=== PATIENT | male | born 1970 | race Caucasian/White ===

== ENCOUNTER 2017-07-12 13:24 | Inpatient (IN) | payer MEDICARE, OTHER ==
[~2017-07-12] VITALS: Ht 170.2 cm; Wt 80.4 kg
[2017-07-12] MEDS ORDERED: IOHEXOL 350 MG/ML 10 ML VIAL (for RAD DIAG) IVCONTRAST ONE (13:25)
[2017-07-12 13:37] VITALS: BP 120/69; PULSE 113; RESP 18; TEMP 101.2; O2SAT 97
[2017-07-12] MEDS ORDERED: SODIUM CHLORIDE 0.9% FLUSH 10 ML FLUSH IV FLUSH PRN ×2 (13:45→18:30)
[2017-07-12] MEDS ORDERED: ACETAMINOPHEN 650 MG/20.3 ML UDC PO ONE (13:45)
[2017-07-12] MEDS ORDERED: ATOR10TA15 PO (14:02)
[2017-07-12] MEDS ORDERED: MULT1TAB46 PO (14:02)
[2017-07-12] MEDS ORDERED: POTA-163 PO (14:02)
[2017-07-12] MEDS ORDERED: LEVO100T5 PO (14:02)
[2017-07-12] MEDS ORDERED: OMEP20TA93 PO (14:02)
[2017-07-12] MEDS ORDERED: DOCU100C15 PO (14:02)
[2017-07-12] MEDS ORDERED: SIME1CAP17 PO (14:02)
[2017-07-12 14:20] LABS: AUTOMATED NEUTROPHIL # 8.5 TH/MM3 (1.8-7.7); BASOPHIL % 0.3 % (0.0-2.0); EOSINOPHIL % 0.2 % (0.0-4.0); HEMATOCRIT 40.2 % (39.0-51.0); HEMOGLOBIN 13.6 GM/DL (13.0-17.0); LYMPH % 7.3 % (9.0-44.0); LYMPHOCYTE # 0.7 TH/MM3 (1.0-4.8); MEAN CELL VOLUME 89.6 FL (80.0-100.0); MEAN CORPUSCULAR HEMOGLOBIN 30.4 PG (27.0-34.0); MEAN CORPUSCULAR HGB CONC 33.9 % (32.0-36.0); MEAN PLATELET VOLUME 7.4 FL (7.0-11.0); MONO % 6.2 % (0.0-8.0); MONOCYTE # 0.6 TH/MM3 (0-0.9); PLATELET COUNT 257 TH/MM3 (150-450); RED BLOOD COUNT 4.49 MIL/MM3 (4.50-5.90); RED CELL DISTRIBUTION WIDTH 13.8 % (11.6-17.2); WHITE BLOOD COUNT 9.9 TH/MM3 (4.0-11.0)
--- NOTE | 2017-07-12 14:31 | RADRPT ---
EXAM DATE/TIME: 07/12/2017 13:57 [facility] COMPARISON: No previous studies available for comparison. INDICATIONS : Shortness of breath. MEDICAL HISTORY : None. SURGICAL HISTORY : None. ENCOUNTER: Initial ACUITY: 1 day PAIN SCORE: Non-responsive. LOCATION: Bilateral chest FINDINGS: Minimal basilar parenchymal opacities are present. This may largely reflect poor inspiratory effort. There is distended colon seen over the upper abdomen. Cardiac contours are grossly satisfactory. CONCLUSION: Poor inspiration with mild basilar parenchymal opacity Venkata Resendez MD on July 12, 2017 at 14:29 Board Certified Radiologist. This report was verified electronically.
[2017-07-12 14:45] LABS: ALBUMIN 3.6 GM/DL (3.4-5.0); ALT (GPT) 61 U/L (12-78); AST (GOT) 36 U/L (15-37); BICARBONATE 29.7 MEQ/L (21.0-32.0); BLOOD UREA NITROGEN 17 MG/DL (7-18); CALCIUM 8.6 MG/DL (8.5-10.1); CHLORIDE 103 MEQ/L (98-107); CREATININE 1.34 MG/DL (0.60-1.30); GLOMERULAR FILTRATION RATE 57 ML/MIN (>89); GLUCOSE,RANDOM 128 MG/DL (74-106); SODIUM (NA) 139 MEQ/L (136-145)
[2017-07-12 14:47] LABS: ALKALINE PHOSPHATASE 83 U/L (45-117); TOTAL BILIRUBIN ADULT 0.5 MG/DL (0.2-1.0); TOTAL PROTEIN 7.6 GM/DL (6.4-8.2)
[2017-07-12 15:20] VITALS: RESP 18; O2SAT 98
[2017-07-12 15:45] VITALS: BP 154/87; PULSE 97; RESP 16; O2SAT 95
[2017-07-12 15:53] VITALS: BP 115/65; PULSE 115; RESP 16; TEMP 98.9; O2SAT 98
[2017-07-12] MEDS ORDERED: PIPERACIL-TAZO 3.375 GM PREMIX 50 ML IV ONE (16:15)
--- NOTE | 2017-07-12 16:24 | RADRPT ---
EXAM DATE/TIME: 07/12/2017 15:39 [facility] COMPARISON: No previous studies available for comparison. INDICATIONS : Abdomen pain IV CONTRAST: 97 cc Omnipaque 350 (iohexol) IV ORAL CONTRAST: No oral contrast ingested. RADIATION DOSE: 7.97 CTDIvol (mGy) MEDICAL HISTORY : None SURGICAL HISTORY : None. ENCOUNTER: Initial ACUITY: 1 day PAIN SCALE: 5/10 LOCATION: Abdomen TECHNIQUE: Volumetric scanning of the abdomen and pelvis was performed. Using automated exposure control and ad justment of the mA and/or kV according to patient size, radiation dose was kept as low as reasonably achievable to obtain optimal diagnostic quality images. DICOM format image data is available electro nically for review and comparison. FINDINGS: LOWER LUNGS: The visualized lower lungs are clear. LIVER: The liver is diffusely hypodense. There are no suspicious lesions or evidence of biliary duct dilatat ion. SPLEEN: Normal size without lesion. PANCREAS: Within normal limits. KIDNEYS: Normal in size and shape. There is no mass, stone or hydronephrosis. ADRENAL GLANDS: Within normal limits. VASCULAR: There is no aortic aneurysm. BOWEL/MESENTERY: The stomach, small bowel, and colon demonstrate no acute abnormality. There is no free intraperitone al air or fluid. ABDOMINAL WALL: Paracentral thinning of the anterior abdominal wall soft tissues with projection of the colon in betw een the rectus muscles suggesting a broad-based ventral hernia. RETROPERITONEUM: There is no lymphadenopathy. BLADDER: No wall thickening or mass. REPRODUCTIVE: Within normal limits. INGUINAL: Fluid accumulation is identified in the right inguinal hernia. Small amount trace fluid is present in the pelvis. MUSCULOSKELETAL: Within normal limits for patient age. CONCLUSION: 1. Hepatic steatosis 2. Broad-based ventral hernia 3. Trace fluid in pelvis and small amount of fluid trapped within the right inguinal canal. 4. Otherwise no evidence of acute process. Eric Saeed MD on July 12, 2017 at 16:17 Board Certified Radiologist. This report was verified electronically.
--- NOTE | 2017-07-12 17:04 | PD ---
HPI Chief Complaint: Medical Clearance Time Seen by Provider: 13:28 Travel History International Travel<30 days: No Contact w/Intl Traveler<30days: No Traveled to known affect area: No History of Present Illness HPI This is a 47-year-old male who has a history of developmental delay who is nonverbal who presents to the emergency department with the behavioral disturbance. He evidently punched a window and has been pointing to his left abdomen saying that it is hurting him. He was at [facility] earlier today and he vomited up his breakfast. The lawn and garden technician who knows him very well says he has not been himself at all and she is concerned that something is wrong. He has a history of a bowel obstruction in the past due to pica. History is obtained from the lawn and garden technician as the patient is nonverbal. PFSH Past Medical History High Cholesterol: Yes GERD: Yes Thyroid Disease: Yes Past Surgical History Abdominal Surgery: Yes Social History Alcohol Use: No Tobacco Use: No Substance Use: No Allergies-Medications (Allergen,Severity, Reaction): Coded Allergies: No Known Allergies (Unverified , 07/12/17) Reported Meds & Prescriptions Reported Meds & Active Scripts Active Reported Simethicone 125 Mg Cap 80 Mg PO QID Omeprazole 20 Mg Tab 20 Mg PO DAILY Multi-Vitamin Daily (Multivitamin) 1 Each Tablet PO DAILY Levothyroxine (Levothyroxine Sodium) 100 Mcg Tab 100 Mcg PO DAILY Potassium Chloride ER (Potassium Chloride) 20 Meq Tab 20 Meq PO BID Docusate Sodium 100 Mg Cap 100 Mg PO BID Atorvastatin (Atorvastatin Calcium) 10 Mg Tab 10 Mg PO HS Review of Systems ROS Limitations: Speech Impaired Physical Exam Narrative GENERAL:Well appearing, no acute distress SKIN: Focused skin assessment warm and dry. HEAD: Atraumatic. Normocephalic. EYES: Pupils equal and round. No injection or drainage. ENT: Moist mucous membranes. Unable to get a good posterior pharyngeal exam due to patient cooperation. NECK: Trachea midline. CARDIOVASCULAR: Regular rate and rhythm. No murmur appreciated. RESPIRATORY: Clear to auscultation. Breath sounds equal bilaterally. GASTROINTESTINAL: Abdomen soft, non-tender, nondistended. MUSCULOSKELETAL: No obvious deformities. NEUROLOGICAL: Nonverbal. No obvious cranial nerve deficits. Moving all extremities. Data Data Last Documented VS Vital Signs Date Time Temp Pulse Resp B/P (MAP) Pulse Ox O2 Delivery O2 Flow Rate FiO2 07/12/17 15:53 98.9 115 16 115/65 (82) 98 Room Air Orders Orders Complete Blood Count With Diff (07/12/17 13:35) Comprehensive Metabolic Panel (07/12/17 13:35) Lipase (07/12/17 13:35) Urinalysis - C+S If Indicated (07/12/17 13:35) Iv Access Insert/Monitor (07/12/17 13:35) Ecg Monitoring (07/12/17 13:35) Oximetry (07/12/17 13:35) Sodium Chloride 0.9% Flush (Ns Flush) (07/12/17 13:45) Chest, Single Ap (07/12/17 13:35) Ct Abd/Pel W Iv Contrast(Rout) (07/12/17 ) Influenzae A/B Antigen (07/12/17 13:35) Group A Rapid Strep Screen (07/12/17 13:35) Acetaminophen 650 Mg/20 Ml Liq (Tylenol (07/12/17 13:45) Strep Culture (Group A) (07/12/17 13:50) Iohexol 350 Inj (Omnipaque 350 Inj) (07/12/17 13:25) Lactic Acid (07/12/17 16:01) Blood Culture (07/12/17 16:01) Piperacil-Tazo 3.375 Gm Premix (Zosyn 3. (07/12/17 16:15) Labs Laboratory Tests Test 07/12/17 13:50 07/12/17 14:05 White Blood Count 9.9 TH/MM3 Red Blood Count 4.49 MIL/MM3 Hemoglobin 13.6 GM/DL Hematocrit 40.2 % Mean Corpuscular Volume 89.6 FL Mean Corpuscular Hemoglobin 30.4 PG Mean Corpuscular Hemoglobin Concent 33.9 % Red Cell Distribution Width 13.8 % Platelet Count 257 TH/MM3 Mean Platelet Volume 7.4 FL Neutrophils (%) (Auto) 86.0 % Lymphocytes (%) (Auto) 7.3 % Monocytes (%) (Auto) 6.2 % Eosinophils (%) (Auto) 0.2 % Basophils (%) (Auto) 0.3 % Neutrophils # (Auto) 8.5 TH/MM3 Lymphocytes # (Auto) 0.7 TH/MM3 Monocytes # (Auto) 0.6 TH/MM3 Eosinophils # (Auto) 0.0 TH/MM3 Basophils # (Auto) 0.0 TH/MM3 CBC Comment DIFF FINAL Differential Comment Blood Urea Nitrogen 17 MG/DL Creatinine 1.34 MG/DL Random Glucose 128 MG/DL Total Protein 7.6 GM/DL Albumin 3.6 GM/DL Calcium Level 8.6 MG/DL Alkaline Phosphatase 83 U/L Aspartate Amino Transf (AST/SGOT) 36 U/L Alanine Aminotransferase (ALT/SGPT) 61 U/L Total Bilirubin 0.5 MG/DL Sodium Level 139 MEQ/L Potassium Level 4.1 MEQ/L Chloride Level 103 MEQ/L Carbon Dioxide Level 29.7 MEQ/L Anion Gap 6 MEQ/L Estimat Glomerular Filtration Rate 57 ML/MIN Lipase 157 U/L Lactic Acid Level 1.5 mmol/L [facility] Medical Decision Making Medical Screen Exam Complete: Yes Emergency Medical Condition: Yes Interpretation(s) Afebrile, tachycardic, hypertensive No leukocytosis 86% neutrophils Renal insufficiency Lactic acid is 1.5 Chest x-ray: Mild basilar parenchymal opacities CT abdomen and pelvis: No acute process Differential Diagnosis Bowel obstruction, appendicitis, urinary tract infection, pneumonia Narrative Course This is a 47-year-old male who presents to the emergency department with developmental delay. He is nonverbal. He evidently had a behavioral outburst and has been gripping his left stomach. He had an episode of vomiting earlier. Patient was placed on a monitor and IV was established. Labs demonstrate 86% neutrophils but are otherwise reassuring. Chest x-ray demonstrates some basilar opacities which may be due to hypoinflation but also may reflect pneumonia. CT abdomen pelvis is unrevealing. Influenza and strep are negative. Given the patient's developmental delay and inability to communicate I think it is reasonable to admit him to the hospital on IV antibiotics to cover empirically for pneumonia. Urinalysis will be obtained while he is in the hospital. Diagnosis Primary Impression: Fever Qualified Codes: R50.9 - Fever, unspecified Admitting Information Admitting Physician Requests: Comfort Posada MD July 12, 2017 17:04
[2017-07-12] MEDS ORDERED: SODIUM CHLOR 0.9% 1000 ML INJ 1,000 ML IV SCH ×2 (17:15)
--- NOTE | 2017-07-12 18:16 | HHI.HP ---
[facility] Service Family Medicine Primary Care Physician Unknown Admission Diagnosis fever Diagnoses: International Travel<30 Days: No Contact w/Intl Traveler<30days: No Known Affected Area: No History of Present Illness Patient is a 47-year-old nonverbal male with past history of intellectual disability, pica, hypothyroid, GERD who presents today for stomach pain. The patient's business assistant accompanied him to the exam. 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 Patient was [place] acted by the area supervisor to [employer]. She reports that [employer] Mccullough had difficulty caring for the patient due to his nonverbal status, and also reports that he is holding his stomach. She states that while there he "ate a meal fast and threw up." She also reports that he had one bowel movement this morning, notes it was normal to her knowledge. When asking the patient he nodded in agreement that it was normal. With help of interpretation through his business assistant it was gathered that he still had upper abdominal pain, but denied any other pain. Denied nausea, burning on urination, abnormal urination. Affirms hunger, normal bowel movement. During the exam the patient continued to burp excessively, grab his throat and cough. His business assistant notes that this is not normal behavior for him. She also notes that he has pica, eats trees, leaves, gloves, underwear elastic, cups. No other complaints today and business assistant notes no further abnormal behaviors. She believes that by the time of the interview the patient had returned to baseline. Review of Systems Constitutional: DENIES: Fever, Chills Eyes: DENIES: Eye inflammation, Eye pain Ears, nose, mouth, throat: DENIES: Throat pain, Ear Pain Respiratory: COMPLAINS OF: Cough (normal for him to have persistent cough), DENIES: Wheezing, Sputum production Cardiovascular: DENIES: Chest pain, Syncope Gastrointestinal: COMPLAINS OF: Abdominal pain, Vomiting (X1, attributed to eating fast), DENIES: Diarrhea Genitourinary: DENIES: Urinary frequency, Dysuria Integumentary: COMPLAINS OF: Abnormal pigmentation (noted around patient's abdominal scar, small scab), DENIES: Rash Hematologic/lymphatic: DENIES: Bruising, Lymphadenopathy Immunologic/allergic: DENIES: Eczema Neurologic: DENIES: Abnormal gait, Headache Psychiatric: COMPLAINS OF: Mood changes, DENIES: Confusion (Baseline confusion) Past Family Social History Past Medical History HLD Constipation Hypothyroid GERD Chronic abdominal gas 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 Pica Past Surgical History Surgery for SBO Allergies: Coded Allergies: No Known Allergies (Unverified , 07/12/17) Family History Unknown, unable to obtain Social History Nonverbal, lives at [facility] EtOH: none Tobacco: None Drugs: none Physical Exam Vital Signs Vital Signs Date Time Temp Pulse Resp B/P (MAP) Pulse Ox O2 Delivery O2 Flow Rate FiO2 07/12/17 15:53 98.9 115 16 115/65 (82) 98 Room Air 07/12/17 15:45 97 16 154/87 (109) 95 Room Air 07/12/17 15:45 154/87 (109) 07/12/17 15:20 18 98 Room Air 07/12/17 13:37 101.2 113 18 120/69 (86) 97 Room Air Physical Exam GENERAL: This is a well-nourished patient, sitting crosslegged in bed rocking back and forth, occasionally grasping and throat and coughing, occasional inappropriate laughter, occasionally grasps upper abdomen. SKIN: Cool and dry. Small area of induration and scabbing in the mid epigastric area at the superior portion of an old abdominal surgical scar. No surrounding erythema or active drainage. HEAD: Atraumatic. Not normocephalic. No temporal or scalp tenderness. EYES: Difficult to obtain due to cooperation, pupils appear equal round and reactive. Extraocular motions intact. No scleral icterus. No injection or drainage. ENT: Nose without bleeding, purulent drainage or septal hematoma. Throat without erythema, tonsillar hypertrophy or exudate. Uvula midline. Airway patent. Poor dentition. NECK: Trachea midline. No JVD or lymphadenopathy. Supple, nontender, no meningeal signs. CARDIOVASCULAR: Regular rate and rhythm without murmurs, gallops, or rubs. RESPIRATORY: Clear to auscultation. Breath sounds equal bilaterally. No wheezes , rales, or rhonchi. GASTROINTESTINAL: Large midline old abdominal surgical scar with skin findings above. Abdomen soft, non-tender, nondistended. No hepato-splenomegaly, or palpable masses. No guarding. Unable to elicit Dillon's, McBurney's, Rovsing's. MUSCULOSKELETAL: Extremities without clubbing, cyanosis, or edema. No joint tenderness, effusion, or edema noted. No calf tenderness. Negative Homans sign bilaterally. NEUROLOGICAL: Awake and alert. Motor and sensory grossly within normal limits. Five out of 5 muscle strength in all muscle groups. Nonverbal. Psychological: Patient is nonverbal, can occasionally poorly or occasional easily follow certain commands. inappropriate affect, inappropriate laughter. Poor eye contact. Rocking back and forth. (All noted to be normal by his business assistant of 10 years) Laboratory Laboratory Tests Test 07/12/17 13:50 07/12/17 14:05 White Blood Count 9.9 Red Blood Count 4.49 Hemoglobin 13.6 Hematocrit 40.2 Mean Corpuscular Volume 89.6 Mean Corpuscular Hemoglobin 30.4 Mean Corpuscular Hemoglobin Concent 33.9 Red Cell Distribution Width 13.8 Platelet Count 257 Mean Platelet Volume 7.4 Neutrophils (%) (Auto) 86.0 Lymphocytes (%) (Auto) 7.3 Monocytes (%) (Auto) 6.2 Eosinophils (%) (Auto) 0.2 Basophils (%) (Auto) 0.3 Neutrophils # (Auto) 8.5 Lymphocytes # (Auto) 0.7 Monocytes # (Auto) 0.6 Eosinophils # (Auto) 0.0 Basophils # (Auto) 0.0 CBC Comment DIFF FINAL Differential Comment Blood Urea Nitrogen 17 Creatinine 1.34 Random Glucose 128 Total Protein 7.6 Albumin 3.6 Calcium Level 8.6 Alkaline Phosphatase 83 Aspartate Amino Transf (AST/SGOT) 36 Alanine Aminotransferase (ALT/SGPT) 61 Total Bilirubin 0.5 Sodium Level 139 Potassium Level 4.1 Chloride Level 103 Carbon Dioxide Level 29.7 Anion Gap 6 Estimat Glomerular Filtration Rate 57 Lipase 157 Lactic Acid Level 1.5 Date/Time Source Procedure Growth Status 07/12/17 14:10 Blood Peripheral Aerobic Blood Culture Pending Received 07/12/17 14:10 Blood Peripheral Anaerobic Blood Culture Pending Received 07/12/17 13:50 Throat Group A Streptococcus Screen Pending Received Result Diagram: 07/12/17 1350 07/12/17 1350 Imaging Last Impressions Chest X-Ray 07/12/17 1335 Signed Impressions: Service Date/Time: Wednesday, July 12, 2017 13:57 - CONCLUSION: Poor inspiration with mild basilar parenchymal opacity Venkata Resendez MD Abdomen/Pelvis CT 07/12/17 0000 Signed Impressions: Service Date/Time: Wednesday, July 12, 2017 15:39 - CONCLUSION: 1. Hepatic steatosis 2. Broad-based ventral hernia 3. Trace fluid in pelvis and small amount of fluid trapped within the right inguinal canal. 4. Otherwise no evidence of acute process. Eric Saeed MD [facility] V[facility] Risk Assessment [facility] VTE Risk Assessment: No/Low Risk (score <= 1) Assessment and Plan Assessment and Plan Patient is a 47-year-old nonverbal male with past history of intellectual disability, pica, hypothyroid, GERD who presented for stomach pain and behavioral change. Patient's business assistant of 10 years noted that at admission his behavior had returned to baseline. However he did continue to grasp his stomach and noted he had abdominal pain. On admission febrile, tachycardic, CXR concerning for possible pneumonia. Problem List: (1) Pneumonia ICD Codes: J18.9 - Pneumonia, unspecified organism Plan: Patient febrile, tachycardic with CXR showing mild by basilar parenchymal opacity. Chronic cough. Concern for community-acquired pneumonia. -Ceftriaxone 1000 mg every 24 hours, azithromycin 500 mg every 24 hours -Monitor for symptomatic change (2) Sepsis ICD Codes: A41.9 - Sepsis, unspecified organism Plan: On admission febrile, tachycardic, CXR suggestive of possible pneumonia. Otherwise well-appearing. -Lactic acid 1.5, within normal limits -Follow-up blood cultures, UA -Antibiotics as above (3) Abdominal pain ICD Codes: R10.9 - Unspecified abdominal pain Plan: Patient nonverbally complaining of abdominal pain. CT abdomen with hepatic steatosis, a broad-based ventral hernia, trace fluid in pelvis and small amount of fluid trapped in the right inguinal canal, no evidence of acute process. On physical exam small area of induration and superior aspect of epigastrium, concerning for possible localized infection. -Antibiotics as above should likely treat possible cellulitis (4) HLD (hyperlipidemia) ICD Codes: E78.5 - Hyperlipidemia, unspecified Plan: History of hyperlipidemia -Continue atorvastatin 10 mg p.o. (5) Hypothyroid ICD Codes: E03.9 - Hypothyroidism, unspecified Plan: History of hypothyroidism. -Follow-up TSH -continue home levothyroxine 100 mcg p.o. daily (6) GERD (gastroesophageal reflux disease) ICD Codes: K21.9 - Gastro-esophageal reflux disease without esophagitis Plan: History of GERD -Continue omeprazole 20 mg daily (7) Pica ICD Codes: F50.89 - Other specified eating disorder Plan: History of pica, reported to eat trees, leaves, gloves, underwear elastic , cups. -One-on-one sitter (8) Flatulence ICD Codes: R14.3 - Flatulence Plan: History of chronic flatulence -Continue home simethicone 125 mg p.o. 4 times daily (9) FEN Plan: Fluids: -Currently tolerating p.o. Electrolytes: -Monitor and replete as needed Nutrition: -Regular diet PPx: Patient's business assistant notes he will likely do poorly with subq shots, will reapproach DVT prophylaxis if patient is anticipated to be in the hospital for extended time Oumar Orr MD R1 July 12, 2017 18:16
[2017-07-12] MEDS ORDERED: LACTULOSE SYRUP 20 GM/30 ML CUP PO PRN (18:30)
[2017-07-12] MEDS ORDERED: NALOXONE HCL 0.4 MG/ML AMP IV PUSH PRN (18:30)
[2017-07-12] MEDS ORDERED: SENNOSIDES 8.6 MG TAB PO PRN (18:30)
[2017-07-12] MEDS ORDERED: ACETAMINOPHEN 325 MG TAB PO PRN (18:30)
[2017-07-12] MEDS ORDERED: BISACODYL 10 MG SUPP RECTAL PRN (18:30)
[2017-07-12] MEDS ORDERED: MAGNESIUM HYDROXIDE SUSP 30 ML CUP PO PRN (18:30)
[2017-07-12 19:41] VITALS: BP 117/66; PULSE 102; RESP 17; TEMP 99.8; O2SAT 97
[2017-07-12] MEDS ORDERED: AZITHROMYCIN INJ 500 MG in SODIUM CHLOR 0.9% 250 ML INJ 250 ML IV SCH (20:00)
[2017-07-12] MEDS ORDERED: cefTRIAXone INJ 1,000 MG in SODIUM CHLORIDE 0.9% INJ 100 ML IV SCH (21:00)
[2017-07-12] MEDS: DOCUSATE SODIUM 100 MG CAP PO SCH (21:19)
[2017-07-12] MEDS: DOCUSATE SODIUM 50 MG/SENNA 8.6 MG TAB PO SCH (21:19)
[2017-07-12] MEDS: ATORVASTATIN 10 MG TAB PO SCH (21:20)
[2017-07-12] MEDS: SIMETHICONE 80 MG CHEWABLE TAB PO SCH (22:58)
[2017-07-12] MEDS: SODIUM CHLORIDE 0.9% FLUSH 10 ML FLUSH IV FLUSH SCH (22:58)
[2017-07-13] VITALS (7 sets, daily range): BP systolic 99–130; BP diastolic 56–90; PULSE 107–121; RESP 16–18; TEMP 97.4–101.5; O2SAT 95–97
[2017-07-13 05:09] LABS: ALKALINE PHOSPHATASE 70 U/L (45-117); ALT (GPT) 51 U/L (12-78); AST (GOT) 30 U/L (15-37); BICARBONATE 27.5 MEQ/L (21.0-32.0); BLOOD UREA NITROGEN 14 MG/DL (7-18); CHLORIDE 107 MEQ/L (98-107); CREATININE 1.21 MG/DL (0.60-1.30); GLOMERULAR FILTRATION RATE 64 ML/MIN (>89); GLUCOSE,RANDOM 122 MG/DL (74-106); SODIUM (NA) 142 MEQ/L (136-145); TOTAL BILIRUBIN ADULT 0.3 MG/DL (0.2-1.0); TOTAL PROTEIN 6.5 GM/DL (6.4-8.2)
[2017-07-13] MEDS: LEVOTHYROXINE SODIUM 100 MCG TAB PO SCH (06:11)
--- NOTE | 2017-07-13 07:20 | HHI.FPPN ---
Subjective Remarks This progress note is written in conjunction with resident H&P dated 07/12/2017. Chriss Lemus is a 47yo gentleman with developmental delay admitted under observation for fever, abdominal pain, and behavioral disturbance, after being noted to punch a window where he lives. He also had an episode of vomiting yesterday morning after eating his meal very quickly. Work up in the ER revealed bilateral pneumonia vs atelectasis, and antibiotics were initiated. Overnight, there were no concerns noted by sister. This morning, he points to his abdomen. He is nonverbal, but is pleasant and cooperative. After seeing patient, blood cultures resulted as positive. ROS: As per HPI and per resident H&P. PMH/PSxH/SocHx/FamHx: Per resident H&P. Significant for: intellectual disability , pica, constipation, GERD, hypothyroidism. Surgery for SBO. Nonverbal. Lives in a half-way. Objective Vitals Vital Signs Date Time Temp Pulse Resp B/P (MAP) Pulse Ox O2 Delivery O2 Flow Rate FiO2 07/13/17 03:07 99.4 121 17 110/56 (74) 96 07/13/17 00:12 101.5 120 16 99/57 (71) 96 07/12/17 19:41 99.8 102 17 117/66 (83) 97 07/12/17 15:53 98.9 115 16 115/65 (82) 98 Room Air 07/12/17 15:45 97 16 154/87 (109) 95 Room Air 07/12/17 15:45 154/87 (109) 07/12/17 15:20 18 98 Room Air 07/12/17 13:37 101.2 113 18 120/69 (86) 97 Room Air I/O 07/12/17 07/12/17 07/12/17 07/13/17 07/13/17 07/13/17 07:00 15:00 23:00 07:00 15:00 23:00 Intake Total 50 ml Balance 50 ml Intake IV Total 50 ml Result Diagram: 07/12/17 7200 07/13/17 0002 Objective Remarks Per resident H&P. Significant for: In NAD, no resp distress, nontoxic. Poor dentition, but no obvious infection. Skin: No significant areas of erythema, drainage, or increased calor. Along superior portion of abdominal scar, there is a small scab. No drainage, no increased warmth, no surrounding erythema, nontender. Tachycardia. No murmurs. CTAB, no crackles, no wheezes. No CVAT. +BS, soft. Nondistended. Ventral hernia noted. A/P Assessment and Plan Patient is a 47-year-old nonverbal male with past history of intellectual disability, pica, hypothyroid, GERD who presented for stomach pain and behavioral change. Patient's investment sales assistant of 10 years noted that at admission his behavior had returned to baseline. However he did continue to grasp his stomach and noted he had abdominal pain. On admission febrile, tachycardic, CXR concerning for possible pneumonia. Attending Attestation Patient seen, examined, and discussed with resident team. The patient has been seen and examined. The chart and all resident notes have been reviewed. I agree that inpatient care is appropriate and that a two midnight stay is expected for the reasons documented in the resident history and physical. I have discussed this with the resident and certify the resident s order for inpatient admission. Problem List: (1) Gram-positive bacteremia ICD Codes: R78.81 - Bacteremia Status: Acute Plan: Uncertain etiology. No obvious findings on skin exam. U/A: pending CXR: bibasilar opacities (infiltrate vs atelectasis) CT Abd/pelvis: hepatic steatosis; broad-based ventral hernia; trace fluid in pelvis and small amount of fluid trapped within the right inguinal canal. Otherwise, no evidence of acute process. Lactic acid: 1.5 Blood culture (07/12/17 x 2): Gram positive cocci. Antibiotic regimen: Vancomycin: 07/13/2017--> Zosyn: 07/13/2017 --> Rocephin: 07/12/2017--> 07/13/2017 Azithromycin: 07/12/2017--> 07/13/2017 (2) Sepsis ICD Codes: A41.9 - Sepsis, unspecified organism Status: Acute Plan: On admission febrile, tachycardic, CXR suggestive of possible pneumonia. Otherwise well-appearing. -Lactic acid 1.5, within normal limits -Follow-up blood cultures, UA -Antibiotics as ordered (3) Pneumonia ICD Codes: J18.9 - Pneumonia, unspecified organism Status: Acute Plan: Patient febrile, tachycardic with CXR showing mild by basilar parenchymal opacity. Chronic cough. Concern for community-acquired pneumonia. Now with gram positive bacteremia; antibiotics as above. -He is maintaining O2 saturations on room air. (4) Abdominal pain ICD Codes: R10.9 - Unspecified abdominal pain Status: Acute Plan: Patient nonverbally complaining of abdominal pain, but seems comfortable on exam. May be secondary to constipation. Continue home regimen. (5) HLD (hyperlipidemia) ICD Codes: E78.5 - Hyperlipidemia, unspecified Status: Chronic Plan: History of hyperlipidemia -Continue atorvastatin 10 mg p.o. (6) Hypothyroid ICD Codes: E03.9 - Hypothyroidism, unspecified Status: Chronic Plan: History of hypothyroidism. -Follow-up TSH -continue home levothyroxine 100 mcg p.o. daily (7) GERD (gastroesophageal reflux disease) ICD Codes: K21.9 - Gastro-esophageal reflux disease without esophagitis Status: Chronic Plan: History of GERD -Continue omeprazole 20 mg daily. (8) Pica ICD Codes: F50.89 - Other specified eating disorder Status: Chronic Plan: History of pica, reported to eat trees, leaves, gloves, underwear elastic , cups. -One-on-one sitter. (9) Flatulence ICD Codes: R14.3 - Flatulence Status: Chronic Plan: History of chronic flatulence; large amounts of stool and air seen in colon on CXR and CT abd pelvis. -Continue home simethicone 125 mg p.o. 4 times daily Problem Qualifiers (1) Sepsis: Qualified Codes: A41.9 - Sepsis, unspecified organism (2) Pneumonia: (3) Abdominal pain: Qualified Codes: R10.32 - Left lower quadrant pain (4) HLD (hyperlipidemia): Qualified Codes: E78.2 - Mixed hyperlipidemia (5) Hypothyroid: Qualified Codes: E03.9 - Hypothyroidism, unspecified (6) GERD (gastroesophageal reflux disease): Qualified Codes: K21.9 - Gastro-esophageal reflux disease without esophagitis Pamela Ramos MD July 13, 2017 07:20
[2017-07-13] MEDS: PANTOPRAZOLE SOD 20 MG DELAYED RELEASE TAB PO SCH (10:05)
[2017-07-13] MEDS: DOCUSATE SODIUM 50 MG/SENNA 8.6 MG TAB PO SCH ×2 (10:05→20:59)
[2017-07-13] MEDS: SIMETHICONE 80 MG CHEWABLE TAB PO SCH ×4 (10:05→20:59)
[2017-07-13] MEDS: SODIUM CHLORIDE 0.9% FLUSH 10 ML FLUSH IV FLUSH SCH ×2 (10:05→20:59)
[2017-07-13] MEDS: DOCUSATE SODIUM 100 MG CAP PO SCH ×2 (10:05→21:00)
[2017-07-13] MEDS ORDERED: Custom Consult Pharmacy 1 EA OTHER SCH (11:30)
[2017-07-13] MEDS ORDERED: Vancomycin Consult Pharmacy 1 EA OTHER SCH (11:30)
[2017-07-13] MEDS ORDERED: VANCOMYCIN INJ 1,500 MG in SODIUM CHLORID 0.9% 500 ML INJ 500 ML IV ONE (13:00)
[2017-07-13 13:03] LABS: BILIRUBIN, URINE NEG (NEG); BLOOD, URINE NEG (NEG); GLUCOSE,URINE NEG (NEG); KETONE, URINE NEG (NEG); NITRITE,URINE NEG (NEG); PH, URINE 6.5 (5.0-8.5); URINE COLOR YELLOW (YELLW/STRAW); URINE LEUKOCYTE ESTERASE NEG (NEG)
[2017-07-13 13:05] LABS: SQUAMOUS EPITHELIAL CELL URINE <1 /hpf (0-5)
--- NOTE | 2017-07-13 15:55 | EKG ---
Date Performed: 07/13/2017 Time Performed: 10:27:07 PTAGE: 47 years EKG: SINUS TACHYCARDIA ABNORMAL RHYTHM ECG NO PREVIOUS TRACING DOCTOR: Jesus Weber Interpretating Date/Time 07/13/2017 15:53:57
[2017-07-13] MEDS: PIPERACIL-TAZO 4.5 GM PREMIX 100 ML IV SCH ×2 (16:37→17:39)
[2017-07-13] MEDS: ATORVASTATIN 10 MG TAB PO SCH (20:59)
[2017-07-14] MEDS: PIPERACIL-TAZO 4.5 GM PREMIX 100 ML IV SCH ×4 (01:16→17:01)
[2017-07-14 04:00] VITALS: BP 136/83; PULSE 99; RESP 18; TEMP 98.3; O2SAT 95
[2017-07-14] MEDS: LEVOTHYROXINE SODIUM 100 MCG TAB PO SCH (05:27)
[2017-07-14] MEDS: VANCOMYCIN 1,500 MG/NS 500 ML IV SCH ×2 (06:16)
[2017-07-14] MEDS: SODIUM CHLORIDE 0.9% FLUSH 10 ML FLUSH IV FLUSH SCH ×2 (07:15→20:30)
[2017-07-14 08:09] VITALS: BP 115/81; PULSE 98; RESP 18; TEMP 98.1; O2SAT 96
[2017-07-14] MEDS: PANTOPRAZOLE SOD 20 MG DELAYED RELEASE TAB PO SCH (08:16)
[2017-07-14] MEDS: SIMETHICONE 80 MG CHEWABLE TAB PO SCH ×4 (08:16→20:31)
[2017-07-14] MEDS: DOCUSATE SODIUM 100 MG CAP PO SCH ×2 (08:16→20:30)
[2017-07-14] MEDS: DOCUSATE SODIUM 50 MG/SENNA 8.6 MG TAB PO SCH ×2 (08:16→20:31)
[2017-07-14 08:52] LABS: CREATININE 1.24 MG/DL (0.60-1.30)
--- NOTE | 2017-07-14 11:32 | HHI.FPPN ---
Subjective Remarks Patient seen and examined today. When asked about abdominal pain he did not point towards his abdomen like the previous days. Minimally interactive, appeared to be trying to sleep. Spoke with patient's one-on-one reports no acute events at this time. Patient not indicating additional gesticulations signs of pain at this time. (Oumar Orr MD R1) Objective Vitals Vital Signs Date Time Temp Pulse Resp B/P (MAP) Pulse Ox O2 Delivery O2 Flow Rate FiO2 07/14/17 10:05 Room Air 07/14/17 08:09 98.1 98 18 115/81 (92) 96 07/14/17 04:00 98.3 99 18 136/83 (100) 95 07/13/17 23:55 98.2 116 18 115/84 (94) 95 07/13/17 21:45 Room Air 07/13/17 20:27 98.2 107 18 120/74 (89) 95 07/13/17 13:02 97.4 115 17 130/90 (103) 95 07/13/17 11:28 98.4 112 18 123/77 (92) 95 I/O 07/13/17 07/13/17 07/13/17 07/14/17 07/14/17 07/14/17 07:00 15:00 23:00 07:00 15:00 23:00 Intake Total 755 ml 200 ml Balance 755 ml 200 ml Intake Oral 240 ml 0 ml IV Total 515 ml 200 ml # Voids 1 4 5 # Bowel Movements 1 8 (Oumar Orr MD R1) Result Diagram: 07/12/17 1350 07/14/17 0705 Objective Remarks GENERAL: Laying in bed face down, minimally interactive, no acute distress SKIN: Cool and dry. Unable to asses abdominal scabbing today due to cooperativeness. HEAD: Atraumatic. Not normocephalic. ENT: Nose without bleeding, purulent drainage or septal hematoma. Throat without erythema, tonsillar hypertrophy or exudate. Uvula midline. Airway patent. Poor dentition. CARDIOVASCULAR: Regular rate and rhythm without murmurs, gallops, or rubs. RESPIRATORY: Clear to auscultation. Breath sounds equal bilaterally. No wheezes , rales, or rhonchi. GASTROINTESTINAL: Large midline old abdominal surgical scar with skin findings above. Abdomen soft, non-tender, nondistended. MUSCULOSKELETAL: Extremities without clubbing, cyanosis, or edema. No joint tenderness, effusion, or edema noted. No calf tenderness. NEUROLOGICAL: Awake and alert. Motor and sensory grossly within normal limits. Five out of 5 muscle strength in all muscle groups. Nonverbal. Psychological: Patient is nonverbal, can occasionally poorly or occasional easily follow certain commands. inappropriate affect, inappropriate laughter. Poor eye contact. (Oumar Orr MD R1) A/P Assessment and Plan Patient is a 47-year-old nonverbal male with past history of intellectual disability, pica, hypothyroid, GERD who presented for stomach pain and behavioral change. 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 However he did continue to grasp his stomach and noted he had abdominal pain. On admission febrile, tachycardic, CXR concerning for possible pneumonia. (Oumar Orr MD R1) Attending Attestation Patient seen, examined, and discussed with resident team. I agree with assessment and management as documented and discussed with me. Sitter at bedside who voices no new concerns. Patient allows me to look in his mouth a little; no obvious abscesses. Poor dentition. No obvious gingival irritation. (Pamela Ramos MD) Problem List: (1) Gram-positive bacteremia ICD Codes: R78.81 - Bacteremia Status: Acute Plan: Uncertain etiology. No obvious findings on skin exam. Possible 2/2 oral etiology, unable to assess today due to cooperation. U/A: WNL CXR: bibasilar opacities (infiltrate vs atelectasis) CT Abd/pelvis: hepatic steatosis; broad-based ventral hernia; trace fluid in pelvis and small amount of fluid trapped within the right inguinal canal. Otherwise, no evidence of acute process. Lactic acid: 1.5 Blood culture (07/12/17 x 2): Gram positive cocci, strep species Antibiotic regimen: Vancomycin: 07/13/2017--> Zosyn: 07/13/2017 --> Rocephin: 07/12/2017--> 07/13/2017 Azithromycin: 07/12/2017--> 07/13/2017 (2) Sepsis ICD Codes: A41.9 - Sepsis, unspecified organism Status: Acute Plan: On admission febrile, tachycardic, CXR suggestive of possible pneumonia. Otherwise well-appearing. -Lactic acid 1.5, within normal limits -Cultures, UA as noted above, see gram-positive bacteremia -Antibiotics as above (3) Pneumonia ICD Codes: J18.9 - Pneumonia, unspecified organism Status: Acute Plan: Patient febrile, tachycardic with CXR showing mild by basilar parenchymal opacity. Chronic cough. Concern for community-acquired pneumonia. Now with gram positive bacteremia; antibiotics as above. -He is maintaining O2 saturations on room air. (4) Abdominal pain ICD Codes: R10.9 - Unspecified abdominal pain Status: Acute Plan: Patient nonverbally complaining of abdominal pain, but seems comfortable on exam. Appears improved today. May be secondary to constipation. Continue home regimen. (5) HLD (hyperlipidemia) ICD Codes: E78.5 - Hyperlipidemia, unspecified Status: Chronic Plan: History of hyperlipidemia -Continue atorvastatin 10 mg p.o. (6) Hypothyroid ICD Codes: E03.9 - Hypothyroidism, unspecified Status: Chronic Plan: History of hypothyroidism. -Follow-up TSH -continue home levothyroxine 100 mcg p.o. daily (7) GERD (gastroesophageal reflux disease) ICD Codes: K21.9 - Gastro-esophageal reflux disease without esophagitis Status: Chronic Plan: History of GERD -Continue omeprazole 20 mg daily. (8) Pica ICD Codes: F50.89 - Other specified eating disorder Status: Chronic Plan: History of pica, reported to eat trees, leaves, gloves, underwear elastic , cups. -One-on-one sitter. (9) Flatulence ICD Codes: R14.3 - Flatulence Status: Chronic Plan: History of chronic flatulence; large amounts of stool and air seen in colon on CXR and CT abd pelvis. -Continue home simethicone 125 mg p.o. 4 times daily (10) FEN Plan: Fluids: -Currently tolerating p.o. Electrolytes: -Monitor and replete as needed Nutrition: -Regular diet (Oumar Orr MD R1) Problem Qualifiers (1) Sepsis: Qualified Codes: A41.9 - Sepsis, unspecified organism (2) Pneumonia: (3) Abdominal pain: Qualified Codes: R10.32 - Left lower quadrant pain (4) HLD (hyperlipidemia): Qualified Codes: E78.2 - Mixed hyperlipidemia (5) Hypothyroid: Qualified Codes: E03.9 - Hypothyroidism, unspecified (6) GERD (gastroesophageal reflux disease): Qualified Codes: K21.9 - Gastro-esophageal reflux disease without esophagitis Oumar Orr MD R1 July 14, 2017 11:32 Pamela Ramos MD July 14, 2017 21:25
[2017-07-14 12:09] VITALS: BP 118/80; PULSE 94; RESP 18; TEMP 98; O2SAT 97
[2017-07-14 16:09] VITALS: BP 116/78; PULSE 90; RESP 18; TEMP 98.7; O2SAT 97
[2017-07-14] MEDS: ATORVASTATIN 10 MG TAB PO SCH (20:30)
[2017-07-14 21:42] VITALS: BP 123/82; PULSE 99; RESP 16; TEMP 97.8; O2SAT 96
[2017-07-14 23:05] VITALS: BP 125/86; PULSE 100; RESP 16; TEMP 97.8; O2SAT 96
[2017-07-15] MEDS: PIPERACIL-TAZO 4.5 GM PREMIX 100 ML IV SCH ×4 (00:36→17:24)
[2017-07-15] MEDS: VANCOMYCIN 1,500 MG/NS 500 ML IV SCH ×4 (00:38→17:25)
[2017-07-15 03:23] VITALS: BP 123/95; PULSE 92; RESP 16; TEMP 97.8; O2SAT 95
[2017-07-15 05:04] LABS: HEMATOCRIT 38.9 % (39.0-51.0); HEMOGLOBIN 13.2 GM/DL (13.0-17.0); MEAN CORPUSCULAR HEMOGLOBIN 30.7 PG (27.0-34.0); MEAN CORPUSCULAR HGB CONC 34.1 % (32.0-36.0); MEAN PLATELET VOLUME 7.5 FL (7.0-11.0); PLATELET COUNT 212 TH/MM3 (150-450); RED BLOOD COUNT 4.32 MIL/MM3 (4.50-5.90); RED CELL DISTRIBUTION WIDTH 13.8 % (11.6-17.2); WHITE BLOOD COUNT 4.7 TH/MM3 (4.0-11.0)
[2017-07-15 05:24] LABS: BICARBONATE 26.6 MEQ/L (21.0-32.0); CALCIUM 8.5 MG/DL (8.5-10.1); CREATININE 1.28 MG/DL (0.60-1.30)
[2017-07-15] MEDS: LEVOTHYROXINE SODIUM 100 MCG TAB PO SCH (06:33)
[2017-07-15 08:00] VITALS: BP 108/75; PULSE 93; RESP 16; TEMP 97.9; O2SAT 95
[2017-07-15] MEDS: SIMETHICONE 80 MG CHEWABLE TAB PO SCH ×4 (08:59→21:40)
[2017-07-15] MEDS: DOCUSATE SODIUM 50 MG/SENNA 8.6 MG TAB PO SCH ×2 (08:59→21:40)
[2017-07-15] MEDS: DOCUSATE SODIUM 100 MG CAP PO SCH ×2 (08:59→21:40)
[2017-07-15] MEDS: PANTOPRAZOLE SOD 20 MG DELAYED RELEASE TAB PO SCH (08:59)
[2017-07-15] MEDS: SODIUM CHLORIDE 0.9% FLUSH 10 ML FLUSH IV FLUSH SCH ×2 (09:00→21:41)
--- NOTE | 2017-07-15 11:15 | HHI.FPPN ---
Subjective Remarks Patient seen and examined today. Continues to endorse abdominal pain. Could not elicit any other complaints. Patient's one-on-one reports no acute events at this time. (Oumar Orr MD R1) Objective Vitals Vital Signs Date Time Temp Pulse Resp B/P (MAP) Pulse Ox O2 Delivery O2 Flow Rate FiO2 07/15/17 08:00 97.9 93 16 108/75 (86) 95 07/15/17 03:23 97.8 92 16 123/95 (104) 95 07/15/17 03:23 Room Air 07/14/17 23:05 97.8 100 16 125/86 (99) 96 07/14/17 23:05 Room Air 07/14/17 21:42 Room Air 07/14/17 21:42 97.8 99 16 123/82 (96) 96 07/14/17 16:09 98.7 90 18 116/78 (91) 97 07/14/17 12:09 98.0 94 18 118/80 (93) 97 I/O 07/14/17 07/14/17 07/14/17 07/15/17 07/15/17 07/15/17 07:00 15:00 23:00 07:00 15:00 23:00 Intake Total 200 ml 280 ml 1040 ml Balance 200 ml 280 ml 1040 ml Intake Oral 0 ml 280 ml 290 ml IV Total 200 ml 750 ml # Voids 5 4 7 # Bowel Movements 8 0 0 (Oumar Orr MD R1) Result Diagram: 07/15/17 0358 07/15/17 0358 Objective Remarks GENERAL: Sitting in bed, interacting at baseline, no acute distress SKIN: Cool and dry. Abdominal scabbing removed, appears to have suture penetrating superior area of the well-healed abdominal scar HEAD: Atraumatic. Not normocephalic. ENT: Nose without bleeding, purulent drainage or septal hematoma. Throat without erythema, tonsillar hypertrophy or exudate. Uvula midline. Airway patent. Poor dentition. CARDIOVASCULAR: Regular rate and rhythm without murmurs, gallops, or rubs. RESPIRATORY: Clear to auscultation. Breath sounds equal bilaterally. No wheezes , rales, or rhonchi. GASTROINTESTINAL: Large midline old abdominal surgical scar with skin findings above. Abdomen soft, mildly tender surrounding penetrating suture, otherwise non -tender, nondistended. MUSCULOSKELETAL: Extremities without clubbing, cyanosis, or edema. No joint tenderness, effusion, or edema noted. No calf tenderness. NEUROLOGICAL: Awake and alert. Motor and sensory grossly within normal limits. Five out of 5 muscle strength in all muscle groups. Nonverbal. Psychological: Patient is nonverbal, can occasionally poorly or occasional easily follow certain commands. inappropriate affect, inappropriate laughter. Poor eye contact. (Oumar Orr MD R1) A/P Assessment and Plan Patient is a 47-year-old nonverbal male with past history of intellectual disability, pica, hypothyroid, GERD who presented for stomach pain and behavioral change. 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 However he did continue to grasp his stomach and noted he had abdominal pain. On admission febrile, tachycardic, CXR concerning for possible pneumonia. (Oumar Orr MD R1) Attending Attestation Patient seen and examined, discussed with Dr Orr. I agree with assessment and management as documented and discussed with me. Pt initially sleeping comfortably, but awakens to voice. Sitter reports no issues and that someone came by and removed suture from abdominal scar. Await blood culture sensitivities. Repeat blood culture no growth thus far. (Pamela Ramos MD) Problem List: (1) Gram-positive bacteremia ICD Codes: R78.81 - Bacteremia Status: Acute Plan: Suture present on abd scar. Bacteremia Possible 2/2 oral or abdominal etiology. U/A: WNL CXR: bibasilar opacities (infiltrate vs atelectasis) CT Abd/pelvis: hepatic steatosis; broad-based ventral hernia; trace fluid in pelvis and small amount of fluid trapped within the right inguinal canal. Otherwise, no evidence of acute process. Lactic acid: 1.5 Blood culture (07/12/17 x 2): Gram positive cocci, strep species -F/U surgery recommendations for abdominal suture/possible pathology Antibiotic regimen: Vancomycin: 07/13/2017--> Zosyn: 07/13/2017 --> Rocephin: 07/12/2017--> 07/13/2017 Azithromycin: 07/12/2017--> 07/13/2017 (2) Sepsis ICD Codes: A41.9 - Sepsis, unspecified organism Status: Acute Plan: On admission febrile, tachycardic, CXR suggestive of possible pneumonia. Otherwise well-appearing. -Lactic acid 1.5, within normal limits -Cultures, UA as noted above, see gram-positive bacteremia -Antibiotics as above (3) Pneumonia ICD Codes: J18.9 - Pneumonia, unspecified organism Status: Acute Plan: Patient febrile, tachycardic with CXR showing mild by basilar parenchymal opacity. Chronic cough. Concern for community-acquired pneumonia. Now with gram positive bacteremia; antibiotics as above. -He is maintaining O2 saturations on room air. (4) Abdominal pain ICD Codes: R10.9 - Unspecified abdominal pain Status: Acute Plan: Patient nonverbally complaining of abdominal pain, but seems comfortable on exam. Suture found protruding from superior aspect of abdominal scar. May be secondary to constipation vs suture. Continue home regimen. (5) HLD (hyperlipidemia) ICD Codes: E78.5 - Hyperlipidemia, unspecified Status: Chronic Plan: History of hyperlipidemia -Continue atorvastatin 10 mg p.o. (6) Hypothyroid ICD Codes: E03.9 - Hypothyroidism, unspecified Status: Chronic Plan: History of hypothyroidism. -Follow-up TSH -continue home levothyroxine 100 mcg p.o. daily (7) GERD (gastroesophageal reflux disease) ICD Codes: K21.9 - Gastro-esophageal reflux disease without esophagitis Status: Chronic Plan: History of GERD -Continue omeprazole 20 mg daily. (8) Pica ICD Codes: F50.89 - Other specified eating disorder Status: Chronic Plan: History of pica, reported to eat trees, leaves, gloves, underwear elastic , cups. -One-on-one sitter. (9) Flatulence ICD Codes: R14.3 - Flatulence Status: Chronic Plan: History of chronic flatulence; large amounts of stool and air seen in colon on CXR and CT abd pelvis. -Continue home simethicone 125 mg p.o. 4 times daily (10) FEN Plan: Fluids: -Currently tolerating p.o. Electrolytes: -Monitor and replete as needed Nutrition: -Regular diet (Oumar Orr MD R1) Problem Qualifiers (1) Sepsis: Qualified Codes: A41.9 - Sepsis, unspecified organism (2) Pneumonia: (3) Abdominal pain: Qualified Codes: R10.32 - Left lower quadrant pain (4) HLD (hyperlipidemia): Qualified Codes: E78.2 - Mixed hyperlipidemia (5) Hypothyroid: Qualified Codes: E03.9 - Hypothyroidism, unspecified (6) GERD (gastroesophageal reflux disease): Qualified Codes: K21.9 - Gastro-esophageal reflux disease without esophagitis Oumar Orr MD R1 July 15, 2017 11:15 Pamela Ramos MD July 15, 2017 21:09
[2017-07-15 12:00] VITALS: BP 102/73; PULSE 89; RESP 18; TEMP 98.1; O2SAT 95
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
[2017-07-15 16:00] VITALS: BP 116/88; PULSE 89; RESP 16; TEMP 97.4; O2SAT 98
[2017-07-15 20:00] VITALS: BP 115/92; PULSE 98; RESP 20; TEMP 97.9; O2SAT 97
[2017-07-15] MEDS: ATORVASTATIN 10 MG TAB PO SCH (21:40)
[2017-07-16] MEDS: PIPERACIL-TAZO 4.5 GM PREMIX 100 ML IV SCH ×5 (01:01→23:52)
[2017-07-16] MEDS: LEVOTHYROXINE SODIUM 100 MCG TAB PO SCH (06:00)
[2017-07-16 06:18] VITALS: BP 112/81; PULSE 91; RESP 20; TEMP 97.6; O2SAT 96
[2017-07-16 08:00] VITALS: BP 115/85; PULSE 93; RESP 20; TEMP 97.7; O2SAT 97
[2017-07-16] MEDS: DOCUSATE SODIUM 50 MG/SENNA 8.6 MG TAB PO SCH ×2 (09:00→22:44)
[2017-07-16] MEDS: DOCUSATE SODIUM 100 MG CAP PO SCH ×2 (09:08→22:44)
[2017-07-16] MEDS: SIMETHICONE 80 MG CHEWABLE TAB PO SCH ×4 (09:08→22:44)
[2017-07-16] MEDS: SODIUM CHLORIDE 0.9% FLUSH 10 ML FLUSH IV FLUSH SCH ×2 (09:09→22:45)
[2017-07-16] MEDS: PANTOPRAZOLE SOD 20 MG DELAYED RELEASE TAB PO SCH (09:09)
--- NOTE | 2017-07-16 09:56 | HHI.FPPN ---
Subjective Remarks Patient seen and examined this morning. Sitting up in bed eating breakfast. When asked about pain did not exhibit typical gesticulations indicating pain. Potentially better. One-on-one has been reporting that patient has been sleeping well, eating well, acting at baseline. (Oumar Orr MD R1) Objective Vitals Vital Signs Date Time Temp Pulse Resp B/P (MAP) Pulse Ox O2 Delivery O2 Flow Rate FiO2 07/16/17 08:00 Room Air 07/16/17 06:18 97.6 91 20 112/81 (91) 96 07/16/17 04:00 Room Air 07/15/17 20:00 97.9 98 20 115/92 (100) 97 07/15/17 20:00 Room Air 07/15/17 16:00 97.4 89 16 116/88 (97) 98 07/15/17 12:00 98.1 89 18 102/73 (83) 95 I/O 07/15/17 07/15/17 07/15/17 07/16/17 07/16/17 07/16/17 07:00 15:00 23:00 07:00 15:00 23:00 Intake Total 1040 ml 1510 ml 320 ml Output Total 600 ml Balance 1040 ml 910 ml 320 ml Intake Oral 290 ml 960 ml 120 ml IV Total 750 ml 550 ml 200 ml Output Urine Total 600 ml # Voids 7 # Bowel Movements 0 2 (Oumar Orr MD R1) Result Diagram: 07/15/17 0358 07/15/17 0358 Objective Remarks GENERAL: Sitting in bed, interacting at baseline, no acute distress SKIN: Cool and dry. Abdominal dressing clean, dry, intact. No surrounding erythema or obvious drainage. HEAD: Atraumatic. Not normocephalic. ENT: Nose without bleeding, purulent drainage or septal hematoma. Throat without erythema, tonsillar hypertrophy or exudate. Uvula midline. Airway patent. Poor dentition. CARDIOVASCULAR: Regular rate and rhythm without murmurs, gallops, or rubs. RESPIRATORY: Clear to auscultation. Breath sounds equal bilaterally. No wheezes , rales, or rhonchi. GASTROINTESTINAL: Large midline old abdominal surgical scar with skin findings above. Abdomen soft, mildly tender at area of dressing, otherwise non-tender, nondistended. MUSCULOSKELETAL: Extremities without clubbing, cyanosis, or edema. No joint tenderness, effusion, or edema noted. No calf tenderness. NEUROLOGICAL: Awake and alert. Motor and sensory grossly within normal limits. Five out of 5 muscle strength in all muscle groups. Nonverbal. Psychological: Patient is nonverbal, can occasionally poorly or occasional easily follow certain commands. inappropriate affect, inappropriate laughter. Poor eye contact. Procedures Old suture removal by general surgery at bedside on 07/15 (Oumar Orr MD R1) A/P Assessment and Plan Patient is a 47-year-old nonverbal male with past history of intellectual disability, pica, hypothyroid, GERD who presented for stomach pain and behavioral change. Patient's gift shop assistant of 10 years noted that at admission his behavior had returned to baseline. However he did continue to grasp his stomach and noted he had abdominal pain. On admission febrile, tachycardic, CXR concerning for possible pneumonia. (Oumar Orr MD R1) Attending Attestation Attending note: Patient seen, examined, and discussed with Irineo Garcia and Sammy. I agree with assessment and management as documented and discussed with me. No new concerns. Sitter at bedside, reports he has not seemed uncomfortable (previously was indicating abdominal pain). Blood cultures / bacteremia likely oral sim. Pt unable to fully cooperate with mouth exam, due to intellectual disability. Will attempt CT to evaluate for abscess, etc. Anticipate discharge today or tomorrow, pending eval by CT scan. (Pamela Ramos MD) Problem List: (1) Gram-positive bacteremia ICD Codes: R78.81 - Bacteremia Status: Acute Plan: Suture present on abd scar. Bacteremia Possible 2/2 oral or abdominal etiology. Blood culture indicative of oral etiology. U/A: WNL CXR: bibasilar opacities (infiltrate vs atelectasis) CT Abd/pelvis: hepatic steatosis; broad-based ventral hernia; trace fluid in pelvis and small amount of fluid trapped within the right inguinal canal. Otherwise, no evidence of acute process. Lactic acid: 1.5 Blood culture (07/12/17 x 2): Gram positive cocci, strep species -Bedside removal of old suture by gen surg on 07/15 Antibiotic regimen: Vancomycin: 07/13/2017--> Zosyn: 07/13/2017 --> Rocephin: 07/12/2017--> 07/13/2017 Azithromycin: 07/12/2017--> 07/13/2017 (2) Sepsis ICD Codes: A41.9 - Sepsis, unspecified organism Status: Acute Plan: On admission febrile, tachycardic, CXR suggestive of possible pneumonia. Otherwise well-appearing. -Lactic acid 1.5, within normal limits -Cultures, UA as noted above, see gram-positive bacteremia, likely oral -Antibiotics as above (3) Pneumonia ICD Codes: J18.9 - Pneumonia, unspecified organism Status: Acute Plan: Patient febrile, tachycardic with CXR showing mild by basilar parenchymal opacity. Chronic cough. Concern for community-acquired pneumonia. Now with gram positive bacteremia; antibiotics as above. -He is maintaining O2 saturations on room air. (4) Abdominal pain ICD Codes: R10.9 - Unspecified abdominal pain Status: Acute Plan: Patient nonverbally complaining of abdominal pain, but seems comfortable on exam. Suture found protruding from superior aspect of abdominal scar. Improved. May be secondary to constipation vs suture. Continue home regimen. (5) HLD (hyperlipidemia) ICD Codes: E78.5 - Hyperlipidemia, unspecified Status: Chronic Plan: History of hyperlipidemia -Continue atorvastatin 10 mg p.o. (6) Hypothyroid ICD Codes: E03.9 - Hypothyroidism, unspecified Status: Chronic Plan: History of hypothyroidism. -Follow-up TSH -continue home levothyroxine 100 mcg p.o. daily (7) GERD (gastroesophageal reflux disease) ICD Codes: K21.9 - Gastro-esophageal reflux disease without esophagitis Status: Chronic Plan: History of GERD -Continue omeprazole 20 mg daily. (8) Pica ICD Codes: F50.89 - Other specified eating disorder Status: Chronic Plan: History of pica, reported to eat trees, leaves, gloves, underwear elastic , cups. -One-on-one sitter. (9) Flatulence ICD Codes: R14.3 - Flatulence Status: Chronic Plan: History of chronic flatulence; large amounts of stool and air seen in colon on CXR and CT abd pelvis. -Continue home simethicone 125 mg p.o. 4 times daily (10) FEN Plan: Fluids: -Currently tolerating p.o. Electrolytes: -Monitor and replete as needed Nutrition: -Regular diet (Oumar Orr MD R1) Problem Qualifiers (1) Sepsis: Qualified Codes: A41.9 - Sepsis, unspecified organism (2) Pneumonia: (3) Abdominal pain: Qualified Codes: R10.32 - Left lower quadrant pain (4) HLD (hyperlipidemia): Qualified Codes: E78.2 - Mixed hyperlipidemia (5) Hypothyroid: Qualified Codes: E03.9 - Hypothyroidism, unspecified (6) GERD (gastroesophageal reflux disease): Qualified Codes: K21.9 - Gastro-esophageal reflux disease without esophagitis Oumar Orr MD R1 July 16, 2017 09:56 Pamela Ramos MD July 16, 2017 20:49
[2017-07-16 10:40] LABS: CREATININE 1.27 MG/DL (0.60-1.30)
[2017-07-16] MEDS ORDERED: PHARMACY ORDERED LAB ONE (11:45)
[2017-07-16 12:00] VITALS: BP 115/90; PULSE 96; RESP 20; TEMP 98.6; O2SAT 96
[2017-07-16] MEDS: VANCOMYCIN 1,500 MG/NS 500 ML IV SCH ×2 (12:29)
[2017-07-16 16:03] VITALS: BP 101/71; PULSE 93; RESP 20; TEMP 98.3; O2SAT 95
[2017-07-16 20:00] VITALS: BP 127/88; PULSE 94; RESP 20; TEMP 97.4; O2SAT 98
[2017-07-16] MEDS: ATORVASTATIN 10 MG TAB PO SCH (22:44)
[2017-07-17] VITALS: BP 123/74; PULSE 92; RESP 16; TEMP 96.4; O2SAT 96
[2017-07-17 04:00] VITALS: BP_SYST 116; BP_SYST 123; BP_DIAS 74; BP_DIAS 80; PULSE 80; PULSE 92; RESP 16; RESP 18; TEMP 96.4; TEMP 98.6; O2SAT 96; O2SAT 97
[2017-07-17] MEDS: PIPERACIL-TAZO 4.5 GM PREMIX 100 ML IV SCH ×2 (05:54→12:17)
[2017-07-17] MEDS ORDERED: VANCOMYCIN INJ 1,750 MG in SODIUM CHLORID 0.9% 500 ML INJ 500 ML IV SCH (06:00)
[2017-07-17] MEDS: LEVOTHYROXINE SODIUM 100 MCG TAB PO SCH (06:03)
[2017-07-17 07:41] LABS: HEMATOCRIT 40.3 % (39.0-51.0); HEMOGLOBIN 13.5 GM/DL (13.0-17.0); MEAN CELL VOLUME 89.5 FL (80.0-100.0); MEAN CORPUSCULAR HGB CONC 33.5 % (32.0-36.0); MEAN PLATELET VOLUME 7.4 FL (7.0-11.0); PLATELET COUNT 242 TH/MM3 (150-450); RED BLOOD COUNT 4.51 MIL/MM3 (4.50-5.90); RED CELL DISTRIBUTION WIDTH 13.8 % (11.6-17.2); WHITE BLOOD COUNT 4.4 TH/MM3 (4.0-11.0)
[2017-07-17 08:00] VITALS: BP 109/57; PULSE 79; RESP 20; TEMP 97; O2SAT 97
[2017-07-17 08:14] LABS: CALCIUM 8.5 MG/DL (8.5-10.1); CREATININE 1.36 MG/DL (0.60-1.30)
[2017-07-17] MEDS: PANTOPRAZOLE SOD 20 MG DELAYED RELEASE TAB PO SCH (08:44)
[2017-07-17] MEDS: SODIUM CHLORIDE 0.9% FLUSH 10 ML FLUSH IV FLUSH SCH (08:44)
[2017-07-17] MEDS: DOCUSATE SODIUM 50 MG/SENNA 8.6 MG TAB PO SCH (08:44)
[2017-07-17] MEDS: DOCUSATE SODIUM 100 MG CAP PO SCH (08:44)
[2017-07-17] MEDS: SIMETHICONE 80 MG CHEWABLE TAB PO SCH ×2 (08:44→12:24)
[2017-07-17] MEDS ORDERED: LORazepam 2 MG/ML VIAL IV PUSH PRN (11:15)
--- NOTE | 2017-07-17 11:31 | HHI.FPPN ---
Subjective Remarks Patient seen and examined today. Appears to be at baseline. Abdominal pain may be improved today, difficult to discern. No new obvious complaints. One-on -one reports no new acute events. (Oumar Orr MD R1) Objective Vitals Vital Signs Date Time Temp Pulse Resp B/P (MAP) Pulse Ox O2 Delivery O2 Flow Rate FiO2 07/17/17 08:00 Room Air 07/17/17 08:00 97.0 79 20 109/57 (74) 97 07/17/17 04:00 98.6 80 18 116/80 (92) 97 07/17/17 00:00 96.4 92 16 123/74 (90) 96 07/16/17 22:00 Room Air 07/16/17 20:00 97.4 94 20 127/88 (101) 98 07/16/17 16:03 98.3 93 20 101/71 (81) 95 07/16/17 12:00 98.6 96 20 115/90 (98) 96 I/O 07/16/17 07/16/17 07/16/17 07/17/17 07/17/17 07/17/17 07:00 15:00 23:00 07:00 15:00 23:00 Intake Total 320 ml 615 ml 940 ml 440 ml Balance 320 ml 615 ml 940 ml 440 ml Intake Oral 120 ml 840 ml 240 ml IV Total 200 ml 615 ml 100 ml 200 ml # Voids 6 4 # Bowel Movements 0 1 (Oumar Orr MD R1) Result Diagram: 07/17/17 0643 07/17/17 0643 Objective Remarks GENERAL: Sitting in bed, interacting at baseline, no acute distress SKIN: Cool and dry. Abdominal dressing clean, dry, intact. No surrounding erythema or obvious drainage. HEAD: Atraumatic. Not normocephalic. ENT: Nose without bleeding, purulent drainage or septal hematoma. Throat without erythema, tonsillar hypertrophy or exudate. Uvula midline. Airway patent. Poor dentition. CARDIOVASCULAR: Regular rate and rhythm without murmurs, gallops, or rubs. RESPIRATORY: Clear to auscultation. Breath sounds equal bilaterally. No wheezes , rales, or rhonchi. GASTROINTESTINAL: Large midline old abdominal surgical scar with skin findings above. Abdomen soft, mildly tender at area of dressing, otherwise non-tender, nondistended. MUSCULOSKELETAL: Extremities without clubbing, cyanosis, or edema. No joint tenderness, effusion, or edema noted. No calf tenderness. NEUROLOGICAL: Awake and alert. Motor and sensory grossly within normal limits. Five out of 5 muscle strength in all muscle groups. Nonverbal. Psychological: Patient is nonverbal, can occasionally poorly or occasional easily follow certain commands. inappropriate affect, inappropriate laughter. Poor eye contact. Procedures Old suture removal by general surgery at bedside on 07/15 (Oumar Orr MD R1) A/P Assessment and Plan Patient is a 47-year-old nonverbal male with past history of intellectual disability, pica, hypothyroid, GERD who presented for stomach pain and behavioral change. Patient's assistant operator of 10 years noted that at admission his behavior had returned to baseline. However he did continue to grasp his stomach and noted he had abdominal pain. On admission febrile, tachycardic, CXR concerning for possible pneumonia. (Oumar Orr MD R1) Attending Attestation Patient seen and examined, discussed with Dr Orr. I agree with assessment and management as documented and discussed with me. No new concerns. Sitter reports no events. Discharge to snf today, after CT to evaluate for mouth/dental abscess in light of blood culture. (Pamela Ramos MD) Problem List: (1) Gram-positive bacteremia ICD Codes: R78.81 - Bacteremia Status: Acute Plan: Suture present on abd scar. Bacteremia likely 2/2 oral. Blood culture indicative of oral etiology. -Follow-up facial CT for possible pathology, unable to perform comprehensive oral exam, patient was unable to tolerate procedure yesterday U/A: WNL CXR: bibasilar opacities (infiltrate vs atelectasis) CT Abd/pelvis: hepatic steatosis; broad-based ventral hernia; trace fluid in pelvis and small amount of fluid trapped within the right inguinal canal. Otherwise, no evidence of acute process. Lactic acid: 1.5 Blood culture (07/12/17 x 2): Gram positive cocci, strep species -Bedside removal of old suture by gen surg on 07/15 Antibiotic regimen: Vancomycin: 07/13/2017--> Zosyn: 07/13/2017 --> Rocephin: 07/12/2017--> 07/13/2017 Azithromycin: 07/12/2017--> 07/13/2017 (2) Sepsis ICD Codes: A41.9 - Sepsis, unspecified organism Status: Acute Plan: On admission febrile, tachycardic, CXR suggestive of possible pneumonia. Otherwise well-appearing. -Lactic acid 1.5, within normal limits -Cultures, UA as noted above, see gram-positive bacteremia, likely oral -Antibiotics as above (3) Pneumonia ICD Codes: J18.9 - Pneumonia, unspecified organism Status: Resolved Plan: Patient febrile, tachycardic with CXR showing mild by basilar parenchymal opacity. Chronic cough. Concern for community-acquired pneumonia. Now with gram positive bacteremia; antibiotics as above. -He is maintaining O2 saturations on room air. (4) Abdominal pain ICD Codes: R10.9 - Unspecified abdominal pain Status: Acute Plan: Patient nonverbally complaining of abdominal pain, but seems comfortable on exam. Suture found protruding from superior aspect of abdominal scar. Improved. May be secondary to constipation vs suture. Continue home regimen. (5) HLD (hyperlipidemia) ICD Codes: E78.5 - Hyperlipidemia, unspecified Status: Chronic Plan: History of hyperlipidemia -Continue atorvastatin 10 mg p.o. (6) Hypothyroid ICD Codes: E03.9 - Hypothyroidism, unspecified Status: Chronic Plan: History of hypothyroidism. -Follow-up TSH -continue home levothyroxine 100 mcg p.o. daily (7) GERD (gastroesophageal reflux disease) ICD Codes: K21.9 - Gastro-esophageal reflux disease without esophagitis Status: Chronic Plan: History of GERD -Continue omeprazole 20 mg daily. (8) Pica ICD Codes: F50.89 - Other specified eating disorder Status: Chronic Plan: History of pica, reported to eat trees, leaves, gloves, underwear elastic , cups. -One-on-one sitter. (9) Flatulence ICD Codes: R14.3 - Flatulence Status: Chronic Plan: History of chronic flatulence; large amounts of stool and air seen in colon on CXR and CT abd pelvis. -Continue home simethicone 125 mg p.o. 4 times daily (10) FEN Plan: Fluids: -Currently tolerating p.o. Electrolytes: -Monitor and replete as needed Nutrition: -Regular diet (Oumar Orr MD R1) Problem Qualifiers (1) Sepsis: Qualified Codes: A41.9 - Sepsis, unspecified organism (2) Pneumonia: (3) Abdominal pain: Qualified Codes: R10.32 - Left lower quadrant pain (4) HLD (hyperlipidemia): Qualified Codes: E78.2 - Mixed hyperlipidemia (5) Hypothyroid: Qualified Codes: E03.9 - Hypothyroidism, unspecified (6) GERD (gastroesophageal reflux disease): Qualified Codes: K21.9 - Gastro-esophageal reflux disease without esophagitis Oumar Orr MD R1 July 17, 2017 11:31 Pamela Ramos MD July 17, 2017 19:49
[2017-07-17 12:00] VITALS: BP 130/89; PULSE 87; RESP 20; TEMP 98.4; O2SAT 96
[2017-07-17] MEDS ORDERED: LEVO750T3 PO (14:17)
[2017-07-17] MEDS ORDERED: METR1TAB76 PO (14:17)
--- NOTE | 2017-07-17 14:18 | HHI.DCPOC ---
Discharge Care Plan Diagnosis: (1) Fever (2) Pica (3) Flatulence (4) Gram-positive bacteremia (5) Hypothyroid (6) HLD (hyperlipidemia) (7) GERD (gastroesophageal reflux disease) (8) Abdominal pain Goals to Promote Your Health * To prevent worsening of your condition and complications * To maintain your health at the optimal level Directions to Meet Your Goals Take your medications as prescribed Follow your dietary instruction Follow activity as directed Keep your appointments as scheduled Take your immunizations and boosters as scheduled If your symptoms worsen call your PCP, if no PCP go to Urgent Care Center or Emergency Room Smoking is Dangerous to Your Health. Avoid second hand smoke Call the 24-hour hour crisis hotline for domestic abuse at Oumar Orr MD R1 July 17, 2017 14:18
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
[2017-07-17] MEDS ORDERED: IOHEXOL 350 MG/ML 10 ML VIAL (for RAD DIAG) IVCONTRAST ONE (14:30)
--- NOTE | 2017-07-17 15:29 | RADRPT ---
EXAM DATE: 07/17/2017 2:29 PM EDT AGE/SEX: 47 years / Male INDICATIONS: Oral swelling. Concern for abscess. CLINICAL DATA: This is the patient's initial encounter. Patient reports that signs and symptoms have been present for 3 days and indicates a pain score of 5/10. MEDICAL/SURGICAL HISTORY: None. None. RADIATION DOSE: 29.28 CTDI (mGy) COMPARISON: . TECHNIQUE: Contiguous images in the axial and coronal planes were obtained using helical multirow de tector technique with 60 ml Omnipaque 350 (iohexol) nonionic water-soluble contrast as a single exam dose. Using automated exposure control and adjustment of the mA and/or kV according to patient size , radiation dose was kept as low as reasonably achievable to obtain optimal diagnostic quality images . FINDINGS: Orbits: The orbital and infraorbital osseous structures are intact. The retroconal structures have a normal configuration. No radiopaque foreign bodies are seen. Nasal Bone: The nasal bone and maxillary spine are intact. Zygomatic Arches: Symmetric without evidence of fracture. Sinuses: The maxillary, ethmoid and frontal sinuses are intact. No air-fluid levels seen. Nasal Cavity: The nasal septum is intact and midline. The lacrimal ducts are intact. Soft Tissues: No radiopaque foreign bodies seen. No soft-tissue swelling is seen. Intracranial: No intracranial air seen. Cribriform Plate: Grossly intact. Post Contrast: No abnormal areas of enhancement seen. Small air-fluid level within the right maxillary sinus with minimal mucosal thickening. Mild scattere d mucosal thickening involving the right ethmoid air cells without air-fluid level. CONCLUSION: 1. Mild acute right maxillary sinusitis. 2. Mild chronic right ethmoid sinus disease. Electronically signed by: Asad Talamantes MD 07/17/2017 3:28 PM EDT
[2017-07-17 16:00] VITALS: BP 125/79; PULSE 83; RESP 20; TEMP 97.3; O2SAT 96
[2017-07-19] MEDS ORDERED: PHARMACY ORDERED LAB ONE (11:45)
== END 2017-07-17 18:10 | disposition home or self-care (01) | DRG 871 ==
LOC: NEPE 13:24 → NEDA 17:46 → NEPFCDU 19:09 → OBSVTOIN 07-13 11:16 → N04A 07-13 13:00
PROVIDERS: ADMIT Family Medicine; ATTEND Family Medicine
DX: A41.9 Sepsis, unspecified organism (principal); J18.9 Pneumonia, unspecified organism; K76.0 Fatty (change of) liver, not elsewhere classified; F50.89 Other specified eating disorder; E03.9 Hypothyroidism, unspecified; E78.2 Mixed hyperlipidemia; K21.9 Gastro-esophageal reflux disease without esophagitis; R14.3 Flatulence; B96.89 Other specified bacterial agents as the cause of diseases classified elsewhere; K43.9 Ventral hernia without obstruction or gangrene; F78 Other intellectual disabilities; T81.89XA Other complications of procedures, not elsewhere classified, initial encounter; W22.09XA Striking against other stationary object, initial encounter; Z98.890 Other specified postprocedural states; K59.00 Constipation, unspecified
CPT/HCPCS: 70487; 71045; 74177; 76937; 80048; 80053; 80202; 81001; 82565; 83605; 83690; 84443; 85025; 85027; 86403; 87040; 87077; 87081; 87205; 87804; 87880; 93005; J0456; J0696; J2060; J2543; J3370; J7030; J7040; J7050; Q9967